=== PATIENT | female | born 1945 | race American Indian/Alaskan Native ===

== ENCOUNTER 2019-01-21 09:37 | Day surgery (SDC) | payer MEDICARE ==
[2019-01-21] MEDS ORDERED: ZOFRAN IV PRN (10:14)
--- NOTE | 2019-01-21 10:18 | Anesthesia Day of Surgery ---
Anesthesia Day of Surgery - Day of Surgery Patient Examined: Yes Patient H&P Reviewed: Yes Patient is NPO: Yes Beta Blockers: Yes Cardiac Clearance: Yes
--- NOTE | 2019-01-21 10:23 | Anesthesia Consultation ---
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
[2019-01-21] MEDS ORDERED: NORVASC PO NR (10:30)
[2019-01-21] MEDS ORDERED: LEVAQUIN 250MG/50ML 250 MG/50 ML BAG IV NR (10:30)
[2019-01-21] MEDS ORDERED: LOPRESSOR ONE (10:48)
[2019-01-21] MEDS ORDERED: VERSED IV NR (11:00)
[2019-01-21] MEDS ORDERED: LACTATED RINGERS 1,000 ML IV SCH (11:00)
[2019-01-21] MEDS ORDERED: ZOFRAN ONE (11:45)
[2019-01-21] MEDS ORDERED: DECADRON ONE (11:45)
[2019-01-21] MEDS ORDERED: DIPRIVAN 10 MG/ML IV ONE (11:45)
[2019-01-21] MEDS ORDERED: SUBLIMAZE ONE (11:46)
[2019-01-21] MEDS ORDERED: OMNIPAQUE 300 MG/50 ML (CATH LAB) IV ONE (12:10)
--- NOTE | 2019-01-21 12:21 | Post Operative Note ---
Date of procedure: 01/14/19 Pre-op diagnosis: painful urination Post-op diagnosis: same Findings: ptotic RK Procedure: cysto rpgs Anesthesia: GETA Surgeon: KWABENA GREWAL Estimated blood loss: none Pathology: none Condition: stable Disposition: PACU
--- NOTE | 2019-01-21 12:22 | Discharge Summary ---
Short Stay Discharge Plan Activity: other (no straining ) Weight Bearing Status: Full Weight Bearing Diet: low fat, low cholesterol, low salt Special Instructions: other (inc fluids ) Follow up with: RYAN RIVERA MD [Primary Care Provider] - 7 Days KWABENA GREWAL MD [Staff Physician] - 7 Days
--- NOTE | 2019-01-21 13:22 | Operative Report ---
PREOPERATIVE DIAGNOSES: Painful urination, vaginal scarring, narrowed introitus. POSTOPERATIVE DIAGNOSES: Painful urination, vaginal scarring, narrowed introitus with low lying right kidney. PROCEDURE: Cystoscopy, retrograde, and open-ended stent on the right side. SURGEON: Dr. Gabriel Jay. ANESTHESIA: General. FINDINGS: This is a woman with painful urination. She now presents for cystoscopy. She could not tolerate any exam in the office. DESCRIPTION OF PROCEDURE: The patient was brought to the operating room and placed in the operating table. Following induction of anesthesia, placed in lithotomy position, prepped and draped in usual sterile fashion. Cystourethroscopy showed a normal bladder, normal epithelium. Retrograde showed normal collecting system with a mild cystocele. We could not fill up the lower pole of the right kidney. We placed an open-ended catheter with a wire and she had some evidence of caliectasis probably some papillary necrosis from previous infection. The patient tolerated the procedure well. She will get a CT scan in recovery. Excellent drainage bilaterally. No catheter was left. No biopsies were needed, brought to recovery in stable condition. JOB# [id number] TONIO/RODNEY
[2019-01-21 13:43] VITALS: BP 156/78
[2019-01-21] MEDS: SUBLIMAZE IV PRN ×2 (13:45→14:00)
--- NOTE | 2019-01-21 13:52 | Post Anesthesia Evaluation ---
- Post Anesthesia Evaluation Patient Participated: Yes Airway Patent: Yes Stable Respiratory Function: Yes Nausea/Vomiting: No Temp > 96.8F: Yes Pain Manageable: Yes Adequeate Hydration: Yes Anesthesia Complications: No Block Receding Appropriately: Not Applicable Patient on Ventilator: No
--- NOTE | 2019-01-21 17:27 | Cat Scan Report ---
CT abdomen pelvis wo con INDICATION / CLINICAL INFORMATION: ptotic RK. TECHNIQUE: Axial CT imaging of abdomen and pelvis was obtained without contrast. Coronal and sagittal reformatte d imaging obtained and reviewed. All CT scans at this location are performed using CT dose reduction for ALARA by means of automated exposure control. COMPARISON: None available. FINDINGS: CT abdomen without contrast demonstrates grossly normal appearance of the liver, spleen, pancreas, le ft kidney, and adrenal glands. No gallbladder pathology noted. There is a simple appearing cyst arising from the upper pole of the right kidney measuring 6.2 cm. Th ere is a large simple cyst arising from the lower pole the right kidney also, measuring 8.[address] pelvis without contrast does not demonstrate any pelvic mass, free fluid, or focal inflammatory ch rosy. GI tract is grossly unremarkable. There is air present in the urinary bladder, presumably from catheterization. Please confirm clinically. Visualized lung bases are clear. No significant osseous abnormality. IMPRESSION: 1. There are 2 simple appearing right renal cyst present, measuring 6.2 and 8.5 cm respectively. 2. There is present within the urinary bladder presumably from instrumentation. Please confirm. 3. No acute finding within the abdomen or pelvis. Signer Name: Marla Morgan MD Signed: 01/21/2019 5:22 PM Workstation Name: [id number]
--- NOTE | 2019-01-22 08:09 | Fluoroscopy Report ---
6 fluoroscopic images submitted Indication: Intraoperative localization Impression: 6 images of the abdomen were submitted for documentation purposes with radiology involve ment. Bilateral retrograde pyelograms were performed. Please refer to the operative note for complet e details. Fluoroscopic time: 42 seconds Signer Name: Larry Collier MD Signed: 01/22/2019 8:05 AM Workstation Name: [id number]
[2019-01-22] MEDS ORDERED: LOPRESSOR PO NR (10:30)
== END 2019-01-21 15:35 | disposition home or self-care (01) ==
LOC: OR 09:37
PROVIDERS: ATTEND Urology
DX: N81.10 Cystocele, unspecified (principal); R30.9 Painful micturition, unspecified; N28.89 Other specified disorders of kidney and ureter; R30.0 Dysuria; N89.8 Other specified noninflammatory disorders of vagina; G43.909 Migraine, unspecified, not intractable, without status migrainosus; I42.0 Dilated cardiomyopathy; I25.10 Atherosclerotic heart disease of native coronary artery without angina pectoris; K21.9 Gastro-esophageal reflux disease without esophagitis; M19.90 Unspecified osteoarthritis, unspecified site; E11.9 Type 2 diabetes mellitus without complications; Z79.899 Other long term (current) drug therapy; Z88.0 Allergy status to penicillin; Z87.891 Personal history of nicotine dependence; Z79.84 Long term (current) use of oral hypoglycemic drugs; Z98.41 Cataract extraction status, right eye; Z98.42 Cataract extraction status, left eye; Z98.51 Tubal ligation status; Z90.710 Acquired absence of both cervix and uterus; Z85.43 Personal history of malignant neoplasm of ovary; Z98.890 Other specified postprocedural states; Z72.89 Other problems related to lifestyle; Z86.2 Personal history of diseases of the blood and blood-forming organs and certain disorders involving the immune mechanism; Z88.8 Allergy status to other drugs, medicaments and biological substances
CPT/HCPCS: 52332; 74176; 74420; 82803; 82962; C1726; C1758; J1100; J1956; J2250; J2405; J2704; J3010; J7120; Q9967